=== PATIENT | female | born 1930 | race Caucasian/White ===

== ENCOUNTER 2017-12-12 13:59 | Emergency (ER) | payer MEDICARE ==
[~2017-12-12] VITALS: Ht 162.6 cm; Wt 70.0 kg
[2017-12-12 14:36] LABS: URINE BILIRUBIN - DIPSTICK NEGATIVE (NEGATIVE); URINE BLOOD DIPSTICK NEGATIVE (NEGATIVE); URINE CLARITY SL CLOUDY; URINE COLOR YELLOW; URINE GLUCOSE - DIPSTICK NEGATIVE (NEGATIVE); URINE KETONE NEGATIVE (NEGATIVE); URINE LEUK ESTERASE TRACE (NEGATIVE); URINE NITRITE - DIPSTICK POSITIVE (Negative); URINE PROTEIN - DIPSTICK NEGATIVE (NEG-TRACE); URINE UROBILINOGEN - DIPSTICK 0.2 E.U./dL (0.2)
[2017-12-12 14:40] LABS: URINE BACTERIA MANY hpf; URINE RBC 0-2 RBC/hpf (0-5); URINE SQUAMOUS EPITHELIAL CELL FEW EPI/hpf (0-FEW)
[2017-12-12] MEDS ORDERED: PYRIDIUM200 MG PO (14:43)
[2017-12-12] MEDS ORDERED: BACTRIM DS1 TAB PO (14:43)
[2017-12-12 14:45] VITALS: BP 124/73
== END 2017-12-12 14:50 | disposition home or self-care (01) ==
LOC: ED 13:59
PROVIDERS: Emergency Medicine
DX: N39.0 Urinary tract infection, site not specified (principal); B96.20 Unspecified Escherichia coli [E. coli] as the cause of diseases classified elsewhere; R10.30 Lower abdominal pain, unspecified

== ENCOUNTER 2018-10-04 06:20 | Emergency (ER) | payer MEDICARE ==
[~2018-10-04] VITALS: Ht 162.6 cm; Wt 73.0 kg
[~2018-10-04 06:20] MED LIST: BACTRIM DS1 TAB PO; PYRIDIUM200 MG PO
[2018-10-04 07:17] LABS: URINE BILIRUBIN - DIPSTICK NEGATIVE (NEGATIVE); URINE BLOOD DIPSTICK NEGATIVE (NEGATIVE); URINE COLOR YELLOW; URINE GLUCOSE - DIPSTICK NEGATIVE (NEGATIVE); URINE KETONE NEGATIVE (NEGATIVE); URINE LEUK ESTERASE NEGATIVE (NEGATIVE); URINE NITRITE - DIPSTICK NEGATIVE (Negative); URINE PROTEIN - DIPSTICK NEGATIVE (NEG-TRACE); URINE UROBILINOGEN - DIPSTICK 0.2 E.U./dL (0.2)
[2018-10-04 07:25] LABS: MEAN CELL VOLUME 90.9 fL CALC (80.0-100.0); MEAN CORPUSCULAR HGB 31.1 pG CALC (26.0-32.0); MEAN CORPUSCULAR HGB CONC 34.2 g/L CALC (32.0-36.0); NEUT# 1.44 thou/uL (2.00-7.15); RED BLOOD COUNT 4.18 mill/uL (4.20-5.60)
[2018-10-04 07:43] LABS: ALBUMIN 3.9 g/dL (3.2-5.0); ALKALINE PHOSPHATASE 39 u/l (38-126); ANION GAP 10 (6-22 (CALC)); BILIRUBIN, TOTAL 0.8 mg/dL (0.0-1.4); BUN 19 mg/dL (8-23); BUN/CREATININE RATIO 26 (12-20 (CALC)); CARBON DIOXIDE 31 mmol/l (22-30); CHLORIDE 104 mmol/l (95-108); CREATININE 0.7 mg/dL (0.5-1.0); GFR > 60 ML/MIN (>=60 (CALC)); GFR FOR AFR.AMER. > 60 ML/MIN (>=60 (CALC)); SGOT/AST 32 u/l (9-36); SODIUM 141 mmol/l (137-146); TOTAL PROTEIN 6.9 g/dL (6.3-8.2)
[2018-10-04 07:55] LABS: MYOGLOBIN 55 ng/mL (0 - 62)
[2018-10-04 08:43] VITALS: BP 164/88
== END 2018-10-04 08:43 | disposition home or self-care (01) ==
LOC: ED 06:20
PROVIDERS: Emergency Medicine
DX: R53.83 Other fatigue (principal); R53.1 Weakness